=== PATIENT | female | born 1955 | race Caucasian/White ===

== ENCOUNTER 2023-03-07 18:26 | Emergency (ER) | payer MEDICARE, OTHER, SELFPAY ==
[2023-03-07 18:28] VITALS: BP 139/84; PULSE 68; RESP 17; O2SAT 95; BMI 35.9
--- NOTE | 2023-03-07 18:42 | CTR_ITS ---
PROCEDURE INFORMATION: Exam: CT Head Without Contrast Exam date and time: 03/07/2023 6:51 PM Age: 67 years old Clinical indication: Injury or trauma; Other: Fall from horse; Additional info: Fell off horse TECHNIQUE: Imaging protocol: Computed tomography of the head without contrast. Radiation optimization: All CT scans at this facility use at least one of these dose optimization techniques: automated exposure control; mA and/or kV adjustment per patient size (includes targeted exams where dose is matched to clinical indication); or iterative reconstruction. REPORTING DATA: Count of CT and Cardiac NM exams in prior 12 months: This patient has received 0 known CTs and 0 known cardiac nuclear medicine studies in the 12 months prior to the current study. COMPARISON: No relevant prior studies available. RADIATION DOSE METRICS: Total DLP (mGy-cm): 1073.3 FINDINGS: Brain: Normal. No hemorrhage. Unremarkable white matter. No mass effect. Cerebral ventricles: No ventriculomegaly. Paranasal sinuses: Visualized sinuses are unremarkable. No fluid levels. Mastoid air cells: Visualized mastoid air cells are well aerated. Bones/joints: Unremarkable. No acute fracture. Soft tissues: Unremarkable. CT/CT head wo con* [id number] IMPRESSION: No acute intracranial abnormality.
--- NOTE | 2023-03-07 18:42 | CTR_ITS ---
PROCEDURE INFORMATION: Exam: CT Chest With Contrast; Diagnostic Exam date and time: 03/07/2023 6:56 PM Age: 67 years old Clinical indication: Injury or trauma; Blunt; Generalized; Other: Fall from horse; Additional info: Fell off horse chest pain SOB TECHNIQUE: Imaging protocol: Diagnostic computed tomography of the chest with contrast. Radiation optimization: All CT scans at this facility use at least one of these dose optimization techniques: automated exposure control; mA and/or kV adjustment per patient size (includes targeted exams where dose is matched to clinical indication); or iterative reconstruction. Contrast material: OMNI 350; Contrast volume: 100 ml; Contrast route: INTRAVENOUS (IV); REPORTING DATA: Count of CT and Cardiac NM exams in prior 12 months: This patient has received 0 known CTs and 0 known cardiac nuclear medicine studies in the 12 months prior to the current study. COMPARISON: CT cervical spin wo con* [id number] 03/07/2023 6:51 PM RADIATION DOSE METRICS: Total DLP (mGy-cm): 0.01 FINDINGS: Lungs: Unremarkable. No consolidation. No masses. Pleural spaces: Unremarkable. No pneumothorax. No pleural effusion. Heart: Mild mitral annular calcification. No cardiomegaly. No pericardial effusion. Lymph nodes: Unremarkable. No enlarged lymph nodes. Vasculature: Mild aortic atherosclerotic calcification without aneurysm. Diaphragm: Small hiatal hernia. Bones/joints: No acute fracture. Mild degenerative changes along the spine. Moderate degenerative changes at the glenohumeral joints. Soft tissues: Unremarkable. PROCEDURE INFORMATION: Exam: CT Abdomen And Pelvis With Contrast Exam date and time: 03/07/2023 6:56 PM Age: 67 years old Clinical indication: Injury or trauma; Blunt; Generalized; Other: Fall from horse; Additional info: Fell off horse chest pain SOB TECHNIQUE: Imaging protocol: Computed tomography of the abdomen and pelvis with contrast. Radiation optimization: All CT scans at this facility use at least one of these dose optimization techniques: automated exposure control; mA and/or kV adjustment per patient size (includes targeted exams where dose is matched to clinical indication); or iterative reconstruction. Contrast material: OMNI 350; Contrast volume: 100 ml; Contrast route: INTRAVENOUS (IV); REPORTING DATA: Count of CT and Cardiac NM exams in prior 12 months: This patient has received 0 known CTs and 0 known cardiac nuclear medicine studies in the 12 months prior to the current study. COMPARISON: No relevant prior studies available. RADIATION DOSE METRICS: Total DLP (mGy-cm): 1514.23 FINDINGS: Liver: Couple small simple liver cysts and subcentimeter hypodensities too small to characterize. Gallbladder and bile ducts: Normal. No calcified stones. No ductal dilation. Pancreas: Normal without ductal dilatation. Spleen: Normal. Adrenal glands: Normal. No mass. Kidneys and ureters: Subcentimeter right renal hypodensity too small to characterize is statistically likely benign and requires no dedicated imaging follow-up. Otherwise unremarkable. Stomach and bowel: No dilatation. No mucosal thickening. Colonic diverticulosis without findings of diverticulitis. Appendix: No evidence of appendicitis. Intraperitoneal space: Unremarkable. No free air. No significant fluid collection. Vasculature: Mild atherosclerotic calcification without abdominal aortic aneurysm. Lymph nodes: Unremarkable. No enlarged lymph nodes. Urinary bladder: Urinary bladder is unremarkable. Reproductive: Unremarkable as visualized. Bones/joints: No acute fracture. Hcyp-[id number]-hybojwja degenerative changes along the spine. Mild sacroiliac joint degenerative changes. Moderate right and mild left hip degenerative changes. Soft tissues: Unremarkable. CT/CT chest abdpel w/*[id number] IMPRESSION: 1. No acute findings. 2. Chronic and incidental findings as above.
--- NOTE | 2023-03-07 18:42 | XRR_ITS ---
PROCEDURE INFORMATION: Exam: XR Left Ankle Exam date and time: 03/07/2023 6:59 PM Age: 67 years old Clinical indication: Injury or trauma; Other: Fall from horse; Additional info: Fell off horse L ankle pain TECHNIQUE: Imaging protocol: Radiologic exam of the left ankle. Views: 3 or more views. COMPARISON: No relevant prior studies available. FINDINGS: Bones/joints: Mildly displaced oblique fracture through the distal fibula. Mildly displaced posterior tibial malleolus fracture. Widening of the medial clear space. Plantar calcaneal enthesophyte. Soft tissues: Anterolateral soft tissue swelling. XR/XR ankle LT min 3V* [id number] IMPRESSION: Mildly displaced lateral and posterior malleolar fractures with medial clear space widening indicating ligamentous injury.
--- NOTE | 2023-03-07 18:42 | CTR_ITS ---
PROCEDURE INFORMATION: Exam: CT Cervical Spine Without Contrast Exam date and time: 03/07/2023 6:51 PM Age: 67 years old Clinical indication: Injury or trauma; Other: Fall from horse; Additional info: Fell off horse TECHNIQUE: Imaging protocol: Computed tomography of the cervical spine without contrast. Radiation optimization: All CT scans at this facility use at least one of these dose optimization techniques: automated exposure control; mA and/or kV adjustment per patient size (includes targeted exams where dose is matched to clinical indication); or iterative reconstruction. REPORTING DATA: Count of CT and Cardiac NM exams in prior 12 months: This patient has received 0 known CTs and 0 known cardiac nuclear medicine studies in the 12 months prior to the current study. COMPARISON: No relevant prior studies available. RADIATION DOSE METRICS: Total DLP (mGy-cm): 302.1 FINDINGS: Bones/joints: No acute fracture. Overall straightening of the natural cervical lordosis without subluxation or dislocation. Overall moderate multilevel, multifactorial cervical spine degenerative changes without severe spinal canal narrowing. Greatest degree of degenerative change at C4-C5 and C5-C6 with moderate right osseous neural foraminal narrowing. Lungs: Lung apices show mild mosaic attenuation, likely on the basis of expiratory phase imaging. Soft tissues: Unremarkable. CT/CT cervical spin wo con* [id number] IMPRESSION: 1. No acute fracture or traumatic listhesis. 2. Overall straightening of the natural cervical lordosis may be positional, possibly related to muscle spasm. 3. Overall moderate multilevel, multifactorial cervical spine degenerative changes greatest from C4-6.
--- NOTE | 2023-03-07 18:55 | W.ED.TRAUMA ---
HPI - Trauma General: Chief Complaint: Trauma Stated Complaint: LEFT ANKLE/R RIB PAIN S/P HORSE FALL Time Seen by Provider: 03/07/23 18:30 History of Present Illness: 67-year-old female complaining of left ankle pain, and some mild chest discomfort from following an injury involving a fall off of a horse. She notes that her horse stumbled, and she fell with the horse. She believes the horse stepped on her ankle on the left. She complains of the pain that is intermittent with brief trouble breathing in her chest at times. It does not seem to be reproducible. No head injury. No loss of consciousness. No neck pain. No back pain. No other extremity pain. Associated symptoms: Reports chest pain; Denies abdominal pain, back pain, fever(s), headache(s), nausea or vomiting Review of Systems Const: Denies: fever(s) Card: Reports: chest pain; Denies: palpitations Resp: Reports: dyspnea; Denies: productive cough or non-productive cough GI: Denies: abdominal pain, nausea or vomiting : Denies: flank pain Musc: Reports: extremity pain; Denies: neck pain or back pain Neuro: Denies: headache(s) Physical Exam Const: COMMON NORMALS: no acute distress GENERAL APPEARANCE: cooperative; not ill appearing and not frail appearing HENMT: COMMON NORMALS: normocephalic, atraumatic and Normal external nose present HEAD & SCALP: normocephalic and atraumatic FACE & SINUS: normal facial exam and face symmetric NOSE: Normal external nose present Eye: COMMON NORMALS: Equal, round and reactive pupils present and EOMs intact bilaterally PUPIL: Yes Equal, round and reactive pupils present Neck/C-Spine: GENERAL: Yes trachea midline CERVICAL SPINE: No Cervical spine tenderness, No Paracervical muscle tenderness and No Paracervical spasm Chest: CHEST: Yes Symmetrical chest wall rise, No localized rib tenderness with anteroposterior compression, No Sternal flail present and No tenderness Resp: COMMON NORMALS: normal respiratory effort, No retractions, No use of accessory muscles and clear to auscultation bilaterally AUSCULTATION: clear to auscultation bilaterally Cardio: COMMON NORMALS: regular rate and regular rhythm RATE: regular rate RHYTHM: regular rhythm GI: COMMON NORMALS: Normal to inspection, nondistended, normoactive bowel sounds present Back/Pelvis: THORACIC SPINE/UPPER BACK: No thoracic spinal tenderness LUMBAR SPINE/LOWER BACK: No lumbar spinal tenderness PELVIS: Yes no pain with anterior-posterior compression and Yes no pain with lateral compression Extremity: NARRATIVE EXTREMITY EXAM: Examination left ankle reveals some swelling just superior to the ankle. Minimal deformity. There is bony tenderness. No knee tenderness. No fibular tenderness proximally. No foot deformity or tenderness. Neuro: MAURY COMA SCALE: document GCS findings Maury coma scale eye opening: Spontaneous Maury coma scale verbal response: Orientated [place] coma scale motor response: Obey commands [place] coma scale total score: 15 SPEECH: speech normal SENSORY EXAM: Yes extremities (intact) Psych: COMMON NORMALS: speech normal SPEECH: Yes normal speech Skin: NARRATIVE SKIN EXAM: Abrasion right elbow Course Vital Signs: Vital signs: Vital Signs Pulse Rate 71 03/07/23 21:48 Respiratory Rate 16 03/07/23 19:58 Blood Pressure 121/68 03/07/23 21:48 Pulse Oximetry 98 03/07/23 21:48 Oxygen Delivery Me thod Room Air 03/07/23 18:28 MDM - Trauma Medical Decision Making CTs are negative. performed due to concern of potential pneumothorax given the patient's symptoms. Ankle shows distal fibular oblique fracture with mortise widening. She is placed in a posterior and stirrup splint. Follow-up with foot and ankle surgery. Lab Data Radiology Impressions Ankle X-Ray 03/07/23 18:42 IMPRESSION: Mildly displaced lateral and posterior malleolar fractures with medial clear space widening indicating ligamentous injury. Cervical Spine CT 03/07/23 18:42 IMPRESSION: 1. No acute fracture or traumatic listhesis. 2. Overall straightening of the natural cervical lordosis may be positional, possibly related to muscle spasm. 3. Overall moderate multilevel, multifactorial cervical spine degenerative changes greatest from C4-6. Chest/Abdomen/Pelvis CT 03/07/23 18:42 IMPRESSION: 1. No acute findings. 2. Chronic and incidental findings as above. IMPRESSION: 1. No acute findings. 2. Chronic and incidental findings as above. Head CT 03/07/23 18:42 IMPRESSION: No acute intracranial abnormality. All radiology interpretation(s) finalized by discharge Discharge Plan Discharge Patient Disposition: Home Clinical Impression: Fracture of distal end of left fibula Qualifiers: Encounter type: initial encounter Fracture type: closed Fracture morphology: other fracture Qualified Code(s): S82.832A - Other fracture of upper and lower end of left fibula, initial encounter for closed fracture Condition: Stable Prescriptions: New hydrocodone-acetaminophen 5-325 mg tablet 1 tab PO Q8H PRN (Reason: pain) Qty: 12 0RF Discharge Orders: Discharge ED (Routine); Ordered 03/07/23 Ordered By: Seth Montague Referrals: Orville Gordon DPM [Physician] - 1-3 days Patient Instructions: Ankle Fracture (ED), Opioid Safety, Pain Management Activity Restrictions/Additional Instructions: No weightbearing. Stay in splint until seen by orthopedic or foot and ankle surgery. Call the orthopedic clinic listed at the number above tomorrow morning for an appointment. Let them know you were seen here with an ankle fracture. Return for any problems in the meantime. Coding Level of Care Code ED [employer]ellite Installation Technician for Gabriella Shaver
[2023-03-07] MEDS: iohexol 350 mg/mL 500 mL Btl (per mL) IV (19:03)
[2023-03-07] MEDS: ondansetron 2 mg/ML SDV 2 mL 4 MG IVP (19:54)
[2023-03-07 19:58] VITALS: RESP 16; O2SAT 99
[2023-03-07] MEDS: HYDROmorphone 1 mg/mL INJ 1 mL IVP (19:58)
[2023-03-07] MEDS: tetanus-diphtheria tox (adult) 0.5 mL SDV IM (20:08)
[2023-03-07 21:48] VITALS: BP 121/68; PULSE 71; O2SAT 98
== END 2023-03-07 21:40 | disposition home or self-care (01) ==
PROVIDERS: Emergency Provider Emergency Medicine
DX: S50.311A Abrasion of right elbow, initial encounter (principal); S82.832A Other fracture of upper and lower end of left fibula, initial encounter for closed fracture; V80.010A Animal-rider injured by fall from or being thrown from horse in noncollision accident, initial encounter; Z23 Encounter for immunization
CPT/HCPCS: 29515; 70450; 71260; 72125; 73610; 74177; 90471; 90714; 96374; 96375; 99284; E0114; J1170; J2405; Q9967